=== PATIENT | male | born 1980 | race Caucasian/White ===

== ENCOUNTER 2020-02-24 11:33 | Emergency (ER) | payer MEDICARE, MEDICAID, SELFPAY ==
[2020-02-24 11:39] VITALS: BP 115/67; PULSE 64; RESP 18; TEMP 36.8; O2SAT 99; BMI 20.7
--- NOTE | 2020-02-24 12:24 | ED.DENTAL ---
HPI - Dental/Oral General Chief complaint: Dental/Oral Stated complaint: mouth infection Time Seen by Provider: 02/24/20 12:24 Source: patient Mode of arrival: ambulatory Limitations: no limitations History of Present Illness HPI Narrative: 39 y/o male with dental pain for the last 2 weeks. He has not seen a dentist in years. He has had increased pain of his upper molars and is concerned an abscess may be forming. He denies fever, chills, facial swelling, difficulty swallowing. He has been taking ibuprofen with good effect however it doesn't last and he is having a hard time sleeping. Teeth map: 1. tender, decayed tooth 2. tender decayed tooth Onset (ago): week(s) (2) Duration: constant Severity: severe Severity scale (1-10): 9 Relieving factors: NSAIDs Exacerbating factors: cold and heat Context: history of dental caries Associated symptoms: gum swelling Treatment prior to arrival: none Related Data Previous Rx's Medication Instructions Recorded dextroamphetamine-amphetamine 30 30 mg PO BID #45 tab 02/16/20 mg tablet ibuprofen 600 mg PO Q8H PRN #30 tab 02/24/20 penicillin V potassium 500 mg PO Q8H 7 Days #21 tab 02/24/20 tramadol 50 mg PO Q8H PRN #10 tab 02/24/20 Allergies Allergy/AdvReac Type Severity Reaction Status Date / Time No Known Allergies Allergy Unverified 01/29/20 17:24 Review of Systems Review of Systems: Constitutional: No Fever, No Chills ENT/Mouth: No sore throat, No Rhinorrhea, No Swallowing Difficulty Cardiovascular: No Chest Pain, No SOB, No Orthopnea, No Edema Respiratory: No Cough, No Sputum, No Wheezing, No dyspnea Gastrointestinal: No Nausea, No Vomiting Musculoskeletal: No joint pain, No Myalgias Skin: No Skin Lesions, No rash Neuro: No Weakness, No Numbness, No Dizziness, + Headache Heme/Lymph: No Bruising, No Lymphadenopathy PMFSH Past Medical History Attestation statement: The following information was validated with the patient. Medical History (Updated 02/24/20 @ 12:30 by PARTH Alvarez) No known health problems Physical Exam Vital Signs: Vital Signs: Vital Signs Temp Pulse Resp BP Pulse Ox 02/24/20 11:39 98.2 F 64 18 115/67 99 Body Mass Index 20.7 Appearance: Alert. Oriented X3. No acute distress. Eyes: Pupils equal, round and reactive to light. ENT: severe dental decay of #14 and moderate decay of #3, no palpable abscess, gingival tenderness throughout upper madible on both sides Neck: Normal inspection. Neck supple. CVS: Normal heart rate and rhythm. Respiratory: No respiratory distress. Breath sounds normal. Skin: Skin warm and dry. Normal skin color. Normal skin turgor. No rashes. Neuro: Oriented X 3. No motor deficit. No sensory deficit. Course Course Course Narrative: 39 yo male with poor dental hygiene and dental decay presenting with worsening pain x2 weeks. Encouraged to call emergency dental services in [place] which he did while he is here in the ER - made an appointment for . Will give empiric abx and tramadol for pain until he can be further assessed. Stable for d/c. MDM - Dental/Oral Differential Diagnosis Differential diagnosis: Likely gingival abscess, dental caries, toothache, dental abscess and fracture of tooth Discharge Plan Discharge Clinical Impression: Dental caries, Dental abscess Patient Disposition: Home, Self-Care Instructions: Dental Abscess (ED), Toothache (ED) Additional Instructions: Follow up with a dentist MIR[facility]. If you develop facial swelling, fever, chills, difficulty swallowing come back to the ER for further evaluation. Prescriptions: New penicillin V potassium 500 mg tablet 500 mg PO Q8H 7 Days Qty: 21 RF: 0 tramadol 50 mg tablet 50 mg PO Q8H PRN (Reason: pain) Qty: 10 RF: 0 ibuprofen 600 mg tablet 600 mg PO Q8H PRN (Reason: pain) Qty: 30 RF: 0 No Action dextroamphetamine-amphetamine [Adderall] 30 mg tablet 30 mg PO BID Qty: 45 RF: 0
== END 2020-02-24 12:53 | disposition home or self-care (01) ==
PROVIDERS: Emergency Provider Emergency Medicine; PCP Nurse Practitioner Family
DX: K02.9 Dental caries, unspecified (principal); K04.7 Periapical abscess without sinus; K08.89 Other specified disorders of teeth and supporting structures
CPT/HCPCS: 99283

== ENCOUNTER 2022-12-18 13:28 | Outpatient (AMB) | payer OTHER, SELFPAY ==
--- NOTE | 2022-12-18 14:05 | MHC.OFFWIV ---
Intake Vital Signs 12/18/22 14:22 Height 5 ft 11 in BP 100/56 L Blood Pressure Location Rt brachial Position Sitting Pulse 56 Pulse Source Pulse Oximeter Pulse Oximetry (%) 99 Oxygen Delivery Method Room Air Intake Visit Reasons: EP Stomach issues (lobby) Intake Note: Pt is here today for constipation for over a wk, and also has bowel concerns. Patient Tobacco Use Status: Former Tobacco user Quit Date: 2020 Allergies No Known Allergies Allergy (Verified 12/18/22 14:49) Medication List - Last Reconciled 12/18/22 by Faustino Ames MD dextroamphetamine-amphetamine 30 mg (Adderall) 30 mg PO BID ibuprofen 600 mg PO Q8H PRN methadone PO quetiapine 100 mg PO BEDTIME 90 days Do you need a note to return to daycare/school/sports/work: No HPI EP Stomach issues (lobby) HPI Details 42-year-old male presents to the office for a sick visit. Patient is in active substance user. He is taking methadone 90 mg a day. Continues to use heroin intermittently. For the past 1 week, patient reports that he has not had any bowel movement. Yesterday he was having liquid stool. No pain in the abdominal area. [facility] Medical History No known health problems Family History Other Mental health disorder Social History Housing: [place] Patient Tobacco Use Status: Former Tobacco user Quit Date: 2020 Current occupational status: employed Physical Exam Vital Signs: Last Vital Signs Pulse 56 12/18/22 14:22 BP 100/56 L 12/18/22 14:22 Pulse Ox 99 12/18/22 14:22 Oxygen Delivery Method Room Air 12/18/22 14:22 Const General: cooperative and healthy appearing Nutritional Appearance: well nourished Orientation/consciousness: patient oriented x3 Limitations: no limitations HEENT Head: Yes normal to inspection Eyes General: appearance normal, both eyes and all related structures Neck Neck: Yes normal visual inspection Chest Chest palpation & inspection: normal palpation of entire chest wall Resp Effort & Inspection: normal respiratory effort Neuro General: patient oriented x3 Assessment & Plan Assessment & Plan (1) Abdominal pain: Code(s): R10.9 - Unspecified abdominal pain Plan: X-ray images were personally reviewed by me. Lots of fecal matter seen. Most likely his symptoms are from constipation. Milk of magnesia and enema was suggested. Coding Level of Care Code Est Pt Level 4 (80384) Diagnoses Abdominal pain R10.9
[2022-12-18 14:22] VITALS: BP 100/56; PULSE 56; O2SAT 99
== END 2022-12-18 16:51 | disposition home or self-care (01) ==
PROVIDERS: PCP Nurse Practitioner Family; Visit Provider Internal Medicine
DX: R10.9 Unspecified abdominal pain (principal)
CPT/HCPCS: 99214

== ENCOUNTER 2022-12-18 14:56 | Outpatient (REF) | payer MEDICARE, SELFPAY ==
--- NOTE | ~2022-12-18 | XR_ITS ---
EXAMINATION: XR ABDOMEN COMPLETE CLINICAL INDICATION: Abdominal pain. COMPARISON: None available. TECHNIQUE: 2 views of the abdomen. FINDINGS: There is a nonobstructive bowel gas pattern. Mild to moderate stool seen throughout the colon distally to the rectum. No abnormal calcifications are seen. Phleboliths overlie the inferior pelvis. The osseous structures are unremarkable. XR/XR abdomen min 2V IMPRESSION: Nonobstructive bowel gas pattern. Mild to moderate colonic stool burden.
== END 2022-12-18 14:57 | disposition home or self-care (01) ==
LOC: HO.HMGCX 14:56
PROVIDERS: PCP Nurse Practitioner Family; Visit Provider Internal Medicine
DX: R10.9 Unspecified abdominal pain (principal)
CPT/HCPCS: 74019

== ENCOUNTER 2023-02-13 03:40 | Emergency (ER) | payer OTHER, SELFPAY ==
[2023-02-13 03:56] VITALS: BP 122/69; PULSE 52; RESP 16; TEMP 36.6; O2SAT 98; BMI 20.2
[2023-02-13 04:08] LABS: Hematocrit 37.5 % (42.0-52.0); Hemoglobin 12.9 g/dl (14.0-18.0); Mean Corpuscular HGB Conc 34.4 g/dl (31.0-36.0); Mean Corpuscular Hemoglobin 29.1 pg (27.0-33.0); Mean Corpuscular Volume 84.5 fL (80.0-98.0); Mean Platelet Volume 12.7 fL (9.4-12.4); Platelet Count 116 X10*3/uL (160-400); Red Blood Count 4.44 X10*6/uL (4.60-5.80); Red Cell Distribution Width 12.7 % (11.0-16.0); White Blood Count 6.1 X10*3/uL (4.8-10.8)
--- OUTSIDE RECORDS SUMMARY | 2023-02-13 04:11 | XMS_ITS | Continuity of Care Document ---
Author Name Unknown Organization [facility] Address [address] [place] [address]- Care Team Providers Care Kiln Car Repairer Name Role Phone Tai FRANCO, Asma Primary Care Physician [phone] Encounter [facility] Date(s): 05/19/19 - 05/29/19 [facility] [address] [place] [address]- [facility] Attending Physician: Aries Navarrete Admitting Physician: AdmAries oviedo Referring Physician: AdmtrAries Allergies, Adverse Reactions, Alerts Substance Reaction Severity Status NKA Active Immunizations Given and Recorded Vaccine Date Status Refusal Reason pneumococcal 23-valent vaccine 1 10/12/10 Given tetanus-diphtheria toxoids (Td) 2 09/11/10 Given 1Admin Note: vis given 02/16/09 2Admin Note: per patient Medications acetaminophen 325 mg oral tablet 650 mg, 2, tablet, By Mouth, Every 6 hours, PRN, # 50 tablet, Refills 0, Tot. Refills 0, Maintenance, as needed for pain, 12/20/18 17:41:08 EDT, Print Requisition Start Date: 12/20/18 Status: Ordered ibuprofen 400 mg oral tablet 400 mg, 1, tablet, By Mouth, Every 6 hours, PRN, # 50 tablet, Refills 0, Tot. Refills 0, Maintenance, as needed for pain, 12/20/18 17:41:00 EDT, Print Requisition Start Date: 12/20/18 Status: Ordered Naphcon-A 0.025%-0.3% ophthalmic solution 1 drops, Eyes, Both, 4 times a day, # 15 mL, 0 Refills, Maintenance, 05/19/19 18:17:00 EST, Solution Start Date: 05/19/19 Status: Ordered Tylenol Extra Strength = 1,000 mg, By Mouth, Every 6 hours, PRN as needed for pain, 0 Refills, Maintenance Start Date: 06/27/12 Status: Ordered Social History Social History Type Response Sex Male
--- OUTSIDE RECORDS SUMMARY | 2023-02-13 04:11 | XMS_ITS | Continuity of Care Document ---
Author Name Unknown Organization [facility] Address [address] [place] [id number]- Care Team Providers Care Bilingual Case Manager Name Role Phone Tai FRANCO, Asma Primary Care Physician Encounter [facility] Date(s): 09/28/20 - 09/29/[address] [address]- Discharge Disposition: A-D/C Walkout Attending Physician: Not on Staff, Attending MD Admitting Physician: Not on Staff, Admitting MD Referring Physician: Not on Staff, Referring MD Allergies, Adverse Reactions, Alerts Substance Reaction Severity [...] Refills, Maintenance Start Date: 06/27/12 Status: Ordered Vital Signs Most recent to oldest [Reference Range]: 1 Oxygen Saturation [94-100 %] 96 % (09/28/20 7:30 PM) Pulse Rate [55-90 bpm] 95 bpm *H* (09/28/20 7:30 PM) Blood Pressure [90-138/55-84 mm Hg] 140/ 67mm Hg *H* (09/28/20 7:30 PM) Respiratory Rate [16-30 br/min] 18 br/mi n (09/28/20 7:30 PM) Temperature [96.8-100.4 DegF] 100.4 DegF (09/28/20 7:30 PM) Mode of Delivery (Oxygen) Room air (09/28/20 7:30 PM) Temperature Route Oral (09/28/20 7:30 PM) Social History Social History Type Response Sex Male
--- OUTSIDE RECORDS SUMMARY | 2023-02-13 04:11 | XMS_ITS | Continuity of Care Document ---
Author Name Unknown Organization [facility] Address [address] [place] [address]- Care Team Providers Care Billboard Erector Name Role Phone Tai FRANCO, Kavithaa Primary Care Physician Encounter [place] Date(s): 05/19/19 - 05/26/19 [facility] [address] [place] [address]- [facility] Encounter Diagnosis Eye irritation(Discharge Diagnosis) - 05/19/19 Attending Physician: Rosa FRANCO, Angel Caceres Referring Physician: Nicholas Lujan MD Allergies, Adverse Reactions, Alerts Substance Reaction [...] Refills, Maintenance Start Date: 06/27/12 Status: Ordered Problem List Diagnosis Diagnosis Type Effective Dates Health Status inical Service Informant Eye irritation Discharge Diagnosis 05/19/19 Vital Signs Most recent to oldest [Reference Range]: 1 Height 180.34 cm (05/19/19 5:44 PM) Weight 65.6 kg (05/19/19 5:44 PM) Oxygen Saturation [94-100 %] 94 % (05/19/19 5:44 PM) Pulse Rate [55-90 bpm] 66 bpm (05/19/19 5:44 PM) Body Mass Index [18.5-24.99] 20.17 (05/19/19 5:44 PM) Blood Pressure [90-138/55-84 mm Hg] 146/ 70mm Hg *H* (05/19/19 5:44 PM) Respiratory Rate [16-30 br/min] 18 br/mi n (05/19/19 5:44 PM) Temperature [96.8-100.4 DegF] 98.1 DegF (05/19/19 5:44 PM) Mode of Delivery (Oxygen) Room air (05/19/19 5:44 PM) Blood pressure sites Arm, left (05/19/19 5:44 PM) Temperature Route Oral (05/19/19 5:44 PM) Dry Weight 65.6 kg (05/19/19 5:44 PM) Weight Obtained Via Standing scale (05/19/19 5:44 PM) Dry Weight Obtained Via Standing scale (05/19/19 5:44 PM) Social History Social History Type Response Sex Male
[2023-02-13 04:12] VITALS: BP 120/76; PULSE 49; RESP 18; TEMP 36.6; O2SAT 98
[2023-02-13 04:23] LABS: Alanine Aminotransferase 16 U/L (0-40); Albumin Level 4.1 g/dL (3.5-5.0); Alkaline Phosphatase 52 U/L (39-117); Anion Gap 14 (12-20); Aspartate Amino Transferase 23 U/L (5-37); Bilirubin Total 0.4 mg/dL (0.0-1.0); Blood Urea Nitrogen 23 mg/dL (9-16); Calcium 9.4 mg/dL (8.4-10.2); Carbon Dioxide 26 mmol/L (22-29); Chloride 104 mmol/L (96-108); Creatinine Clr Calc Pharmacy 98.5; Estimated Glomerular Filt Rate > 60; Glucose Random 77 mg/dL (60-115); Potassium 3.8 mmol/L (3.3-5.1); Sodium 140 mmol/L (135-145); Total Protein 7.1 g/dL (6.5-8.0)
[2023-02-13 05:11] VITALS: BP 116/65; PULSE 42; RESP 16; TEMP 36.5; O2SAT 98
--- NOTE | 2023-02-13 05:29 | ED.ABDPAIN ---
HPI - Abdominal Pain General Chief Complaint: Abdominal Pain Stated Complaint: Constipated? Time Seen by Provider: 02/13/23 05:21 Source: patient Limitations: no limitations History of Present Illness HPI narrative: 42-year-old male on chronic methadone use presents with constipation. Last bowel movement was yesterday. He is passing flatus. He is not abdominal bloating sensation. Patient describes the symptoms as moderate to severe. He was given a prescription for some sort of medication but he is not sure what it was. He has had some mild nausea but no vomiting. Denies any fevers or chills. His symptoms have been appear to have been worsening once on methadone. There are no clear relieving features. Related Data Home Medications Medication Instructions Recorded Confirmed methadone PO 03/28/21 12/18/22 Previous Rx's Medication Instructions Recorded ibuprofen 600 mg tablet 600 mg PO Q8H PRN pain #30 tabs 02/24/20 dextroamphetamine-amphetamine 30 30 mg PO BID #45 tabs 05/26/21 mg tablet (Adderall) quetiapine 100 mg tablet 100 mg PO BEDTIME 90 days #90 tabs 10/05/21 glycerin (adult) (Fleet Glycerin 1 supp [place] DAILY PRN constipation 02/13/23 (Adult) rectal suppository) #25 ea magnesium hydroxide 400 mg/5 mL 15 ml PO DAILY PRN constipation 02/13/23 oral suspension (Milk of Magnesia) #355 mL sennosides 8.6 mg-docusate sodium 2 tab-cap (2 x 8.6-50 mg) PO 02/13/23 50 mg capsule (Senna Plus) BEDTIME #30 caps Allergies Allergy/AdvReac Type Severity Reaction Status Date / Time No Known Allergies Allergy Verified 12/18/22 14:49 Review of Systems Review of Systems CONSTITUTIONAL: Denies weight loss, fever and chills. HEENT: Denies changes in vision and hearing. RESPIRATORY: Denies SOB and cough. CV: Denies palpitations no CP. GI: Denies abdominal pain, nausea, vomiting and diarrhea. : Denies dysuria and urinary frequency. MSK: Denies myalgia and joint pain. SKIN: Denies rash and pruritus. NEUROLOGICAL: Denies headache and syncope. PSYCHIATRIC: Denies recent changes in mood. Denies anxiety and depression. All other ROS are negative unless in HPI PMFSH Past Medical History Medical History No known health problems Family History Family History Other Mental health disorder Social History Social History Housing: House Patient Tobacco Use Status: Former Tobacco user Quit Date: 2020 Smoked in Last 30 Days: Yes Use of substances other than those prescribed or required for medical reasons: Yes Substance Use Type: Crack/Cocaine and Heroin Substance Use Frequency: Chronic Longstanding Last Used Substance: Hours (ago) Advance Directives: No Current occupational status: employed Physical Exam ED Vital Signs: Vital Signs - 24 hr 02/13/23 03:56 02/13/23 04:12 02/13/23 05:11 Temperature 97.8 F 97.8 F 97.7 F Pulse Rate 52 49 L 42 L Respiratory Rate 16 18 16 Blood Pressure 122/69 120/76 116/65 Pulse Oximetry 98 98 98 Oxygen Delivery Method Room Air Room Air Room Air BMI result Body Mass Index 20.2 GEN: Cachectic, no acute distress, alert, oriented HEENT: Normocephalic, atraumatic, normal external ears, nose appears normal, no oropharyngeal edema or exudates Eyes: Normal to appearance Neck: Supple, no lymphadenopathy Respiratory: Talks in complete sentences, no respiratory distress, clear to auscultation bilaterally Cardiovascular: Regular rate and rhythm, no murmurs rubs or gallops Abdomen: Soft, nontender, nondistended, no guarding, no rebound Back: No CVA tenderness Extremities: No clubbing cyanosis or edema Neurologic: No focal neurologic deficits, cranial nerves 2-12 intact, strength is 5/5 bilaterally Skin: No rash Medical Decision Making Medical Decision Making MDM Narrative: 42-year-old male on methadone presents with constipation. Has no fevers or chills. Abdomen is benign. I believe patient has opioid induced constipation. He has no significant history of abdominal surgeries. He is passing flatus. Doubt small bowel obstruction or ileus. I will recommend a strong bowel regimen for the patient. Patient potentially follow-up with Gastroenterology if needed. For more significant symptoms, patient return for re-evaluation. Differential Diagnosis Differential Diagnoses: The differential diagnosis associated with the presentation includes (Constipation, opioid induced constipation, ileus, small-bowel obstruction) Lab Data MDM Lab Attestation statement: I reviewed the patient's lab results. 02/13/23 04:03 02/13/23 04:03 Labs: Lab Results 02/13/23 Range/Units 04:03 WBC 6.1 (4.8-10.8) X10*3/uL RBC 4.44 L (4.60-5.80) X10*6/uL Hgb 12.9 L (14.0-18.0) g/dl Hct 37.5 L (42.0-52.0) % MCV 84.5 (80.0-98.0) fL MCH 29.1 (27.0-33.0) pg MCHC 34.4 (31.0-36.0) g/dl RDW 12.7 (11.0-16.0) % Plt Count 116 L (160-400) X10*3/uL MPV 12.7 H (9.4-12.4) fL Absolute Nucleated RBC 0.000 (0.0-0.012) X10*3/uL Nucleated RBC % (auto) 0.0 (0.0-0.2) /100WBC Sodium 140 (135-145) mmol/L Potassium 3.8 (3.3-5.1) mmol/L Chloride 104 (96-108) mmol/L Carbon Dioxide 26 (22-29) mmol/L Anion Gap 14 (12-20) BUN 23 H (9-16) mg/dL Creatinine 0.89 (0.5-1.4) mg/dL Estim Creat Clear Calc 98.5 Estimated GFR > 60 Random Glucose 77 (60-115) mg/dL Calcium 9.4 (8.4-10.2) mg/dL Total Bilirubin 0.4 (0.0-1.0) mg/dL AST 23 (5-37) U/L ALT 16 (0-40) U/L Alkaline Phosphatase 52 (39-117) U/L Total Protein 7.1 (6.5-8.0) g/dL Albumin 4.1 (3.5-5.0) g/dL Prescription Management I considered prescription management with: Other (Constipation medications) Chronic Conditions Patient?s care impacted by: Other (Methadone use) Discharge Plan Discharge Clinical Impression: Therapeutic opioid induced constipation Patient Disposition: Home, Self-Care Instructions: Constipation (ED) Prescriptions: New magnesium hydroxide [Milk of Magnesia] 400 mg/5 mL suspension 15 ml PO DAILY PRN (Reason: constipation) Qty: 355 0RF Senna Plus 8.6-50 mg capsule 2 tab-cap PO BEDTIME Qty: 30 0RF glycerin (adult) [Fleet Glycerin (Adult)] Suppository 1 supp [facility] DAILY PRN (Reason: constipation) Qty: 25 0RF No Action dextroamphetamine-amphetamine [Adderall] 30 mg tablet 30 mg PO BID Qty: 45 0RF Rx Instructions: 1 tablet in AM and 1/2 tablet in PM BID quetiapine 100 mg tablet 100 mg PO BEDTIME 90 Days Qty: 90 0RF ibuprofen 600 mg tablet 600 mg PO Q8H PRN (Reason: pain) Qty: 30 0RF methadone PO Referrals: Ford Bingham, CAPACITY PLANNING ANALYST-BC [Primary Care Provider] - 3 days
[2023-02-13] MEDS: Milk of Magnesia 30 ML ORAL.SUSP PO (05:52)
== END 2023-02-13 05:50 | disposition home or self-care (01) ==
PROVIDERS: Emergency Provider Emergency Medicine; PCP Nurse Practitioner Family
DX: K59.03 Drug induced constipation (principal); T40.2X5A Adverse effect of other opioids, initial encounter; Y92.9 Unspecified place or not applicable; Z79.899 Other long term (current) drug therapy; F11.20 Opioid dependence, uncomplicated
CPT/HCPCS: 36415; 80053; 85027; 99283; 99284

== ENCOUNTER 2025-05-02 00:43 | Emergency (ER) | payer OTHER, SELFPAY ==
--- NOTE | 2025-05-02 | ECG_ITS ---
Test Reason : CHEST PAIN Blood Pressure : */* mmHG Vent. Rate : 56 BPM Atrial Rate : 56 BPM P-R Int : 100 ms QRS Dur : 100 ms QT Int : 428 ms P-R-T Axes : 37 25 58 degrees QTcB Int : 413 ms Sinus bradycardia with short ND Otherwise normal ECG No previous ECGs available Referred By: Generic ED Physician Electronically Signed By: Jose C Villalobos
--- NOTE | ~2025-05-02 | XR_ITS ---
CLINICAL HISTORY: chest pain 1 view chest x-ray. Comparison: None provided Findings: No consolidation or effusion. No pneumothorax. Normal cardiomediastinal silhouette. IMPRESSION: No acute disease. This document has been electronically signed by: Ramiro Rhodes MD on 05/02/2025 03:35:15
--- NOTE | ~2025-05-02 | CT_ITS ---
CLINICAL HISTORY: CP, pericarditis, r o effusion CT chest without contrast Comparison: CR - XR CHEST 1V - 05/02/25 02:35 EST Findings: Normal heart size. Trace pericardial effusions probably physiologic. Calcific coronary artery disease: None. No bulky mediastinal lymphadenopathy. Lungs are clear. No pneumothorax or pleural effusions, plaques or calcifications. Central airways are patent. No bronchiectasis. No thyroid nodules. No chest wall masses. No axillary adenopathy. Limited view of the upper abdomen is normal. No acute fractures or pathologic bone lesions. Impression: 1. No significant pericardial effusion. 2. Clear lungs. No pneumothorax or pleural effusions. This document has been electronically signed by: Yonis Gu MD on 05/02/2025 07:12:49
[2025-05-02 00:48] VITALS: BP 121/67; PULSE 61; RESP 18; TEMP 36.5; O2SAT 99; BMI 16.6
[2025-05-02 01:14] LABS: Hematocrit 42.9 % (42.0-52.0); Hemoglobin 14.5 g/dl (14.0-18.0); Mean Corpuscular HGB Conc 33.8 g/dl (31.0-36.0); Mean Corpuscular Hemoglobin 28.5 pg (27.0-33.0); Mean Corpuscular Volume 84.3 fL (80.0-98.0); NRBC Abs Auto 0.000 X10*3/uL (0.0-0.012); NRBC Pct Auto 0.0 /100WBC (0.0-0.2); Platelet Count 130 X10*3/uL (160-400); Red Blood Count 5.09 X10*6/uL (4.60-5.80); WBC ABN SCTR FOR CBC 1
[2025-05-02 01:16] LABS: White Blood Count 11.9 X10*3/uL (4.8-10.8)
--- OUTSIDE RECORDS SUMMARY | 2025-05-02 01:23 | XMS_ITS | Clinical Summary ---
Author Organization [facility] Address [address] [place] [address] Care Team Providers Care Speedboat Operator Name Role Phone Unavailable Primary Care Provider Unavailabl e Social History Tobacco Use Types Packs/Day Years Used Date Smoking Tobacco: Never Assessed Sex and Gender Information Value Date Recorded Sex Assigned at Not on file Legal Sex Male 10:07 AM EST Gender Identity Not on file Sexual Orientation Not on file Plan of Treatment Health Maintenance Due Date Last Done Comments Colorectal Cancer Screening: Colonoscopy 1978 DTaP,Tdap,and Td Vaccines (1 - Tdap) 1997 Hepatitis B Vaccines (1 of 3 - 19+ 3-dose series) 1997 Cholesterol Screening (Lipid Panel) 04/11/2022 HIV Screening 04/11/2022 Hepatitis C Screening 04/11/2022 Social Influencers of Health Screening 04/11/2022 Depression Screening 05/14/2024 COVID-19 Vaccine ( - 2024-2 6 season) 2025 Influenza Vaccine (#1) 2025 RSV Immunization Adult Patie nts (1 - 1-dose 75+ series) 2053 HIB Vaccines Aged Out No longer eligi ble based on patient's age to complete this topic HPV Vaccines Aged Out No longer eligi ble based on patient's age to complete this topic Hepatitis A Vaccines Aged Out No long er eligible based on patient's age to complete this topic IPV Vaccines Aged Out No longer eligi ble based on patient's age to complete this topic MMR Vaccines Aged Out No longer eligi ble based on patient's age to complete this topic Meningococcal ACWY Vaccine Aged Out N o longer eligible based on patient's age to complete this topic Meningococcal B Vaccine Aged Out No l onger eligible based on patient's age to complete this topic Pneumococcal Vaccine: Pediat rics (0 to 5 Years) and At-Risk Patients (6 to 49 Years) Aged Out No longer eligible b ased on patient's age to complete this topic RSV Immunization Patients Un harpreet 20 months Aged Out No longer eligible b ased on patient's age to complete this topic Varicella Vaccines Aged Out No longer eligible based on patient's age to complete this topic
--- OUTSIDE RECORDS SUMMARY | 2025-05-02 01:23 | XMS_ITS | Clinical Summary ---
Author Organization [facility] [facility] Address [address] [place] [address] Care Team Providers Care Capital Markets Specialist Name Role Phone Unavailable Primary Care Provider Unavailabl e Immunizations Immunization Administration Dates Next Due Pfizer Covid-19 Vaccine 12+ 05/30/2022 Social History Tobacco Use Types Packs/Day Years Used Date Smoking Tobacco: Never Assessed Sex and Gender Information Value Date Recorded Sex Assigned at Male 03/13/2022 10:18 AM EDT Legal Sex Male 10:18 AM EDT Gender Identity Male 08/22/2022 10:16 AM EDT Sexual Orientation Straight 08/22/2022 10 :16 AM EDT Plan of Treatment Health Maintenance Due Date Last Done Comments CT Colonography 1978 Colonoscopy 1978 Colorectal Cancer Screening 1978 Depression Screening 1978 FIT DNA/Cologuard 1978 FIT 1978 FOBT 1978 HIV Screening 1978 Lipid Panel 1978 SDOH Screening 1978 Sigmoidoscopy 1978 Disability Screening 1978 Alcohol/Substance Use Screening 1990 Tobacco Screening 1990 Family Planning (PISQ) 1993 Hepatitis C Screening 1996 Hepatitis B Vaccines (1 of 3 - 19+ 3-dose series) 1997 Dental Prophylaxis 09/16/2014 03/18/2014 Dental X-Ray: Bitewings 10/31/2014 10/30/2013 Dental Oral Exam 11/18/2014 05/20/2014, 10/30/2013 Dental X-Ray: Full Mouth 11/12/2016 014, 10/30/2013 COVID-19 Vaccine ( - 2024-2 6 season) 2025 05/30/2022, 12/17/2020 Influenza Vaccine (#1) 2025 DTaP/Tdap/Td Vaccines (2 - T d or Tdap) 01/12/2027 01/12/2017, 09/11/2010 Zoster Vaccines (1 of 2) 2028 RSV Patients and Patients Aged 60 years or older (1 - 1-dose 75+ series) 2053 Pneumococcal Vaccine: Pediatrics (0 to 5 Years) and At-Risk Patients (6 to 49) Years Aged Out 10/12/2010 No longer eligible b ased on patient's age to complete this topic HIB Vaccines Aged Out No longer eligi [...] patient's age to complete this topic Meningococcal Vaccine Aged Out No ganga brian eligible based on patient's age to complete this topic RSV under 20 months Aged Out No longe r eligible based on patient's age to complete this topic Rotavirus Vaccines Aged Out No longer eligible based on patient's age to complete this topic Procedures Procedure Name Priority Date/Time Associated Diagnosis Comments PERIODIC ORAL EVALUATION - ESTABLISHED PATIENT Routine 05/20/2014 12:00 AM EST PROPHYLAXIS - ADULT Routine 03/18/2014 1 2:00 AM EST PANORAMIC RADIOGRAPHIC IMAGE Routine 11/11/2013 12:00 AM EDT INTRAORAL - COMPLETE SERIES OF RADIOGRAPHIC IMAGES Routine 10/30/2013 12:00 AM EDT from Last 3 Months or Most Recently Relevant to Health Maintenance Insurance MEDICARE [facility] STANDARD DENTAL-[facility] MEDICAID STAND ADULT
[2025-05-02 01:29] LABS: Alanine Aminotransferase 28 U/L (0-40); Albumin Level 4.5 g/dL (3.5-5.0); Alkaline Phosphatase 59 U/L (39-117); Anion Gap 14 (12-20); Aspartate Amino Transferase 29 U/L (5-37); Blood Urea Nitrogen 14 mg/dL (9-16); Calcium 9.5 mg/dL (8.4-10.2); Carbon Dioxide 25 mmol/L (22-29); Chloride 107 mmol/L (96-108); Creatinine Clr Calc Pharmacy 108.6; Estimated Glomerular Filt Rate > 60; Potassium 4.1 mmol/L (3.3-5.1); Sodium 142 mmol/L (135-145); Total Protein 6.9 g/dL (6.5-8.0)
[2025-05-02 01:33] LABS: Atypical Lymph Absolute Manual 0.1 x10*3/uL; Atypical Lymphs Percent Manual 1 % (0-6); Band Neutrophils Percent 2 % (3-5); Lymphocytes Absolute Manual 0.7 X10*3/uL (1.2-4.9); Lymphocytes Percent Manual 6 % (20-40); Monocytes Absolute Manual 0.2 X10*3/uL (0.1-1.2); Monocytes Percent Manual 2 % (2-11); Neutrophils Absolute Manual 10.8 X10*3/uL (2.0-8.3); Neutrophils Percent Manual 89 % (45-73)
[2025-05-02 01:34] LABS: RBC Morphology NORMAL
[2025-05-02 01:37] LABS: Troponin-I High Sensitivity < 2.7 ng/L (<3.5-35.0)
--- NOTE | 2025-05-02 04:10 | ED_ITS ---
HPI - Chest Pain General Chief Complaint: Chest Pain Stated Complaint: chest pain Time Seen by Provider: 05/02/25 03:36 Source: patient Mode of arrival: ambulatory Limitations: no limitations History of Present Illness ED Provider: Dr. Nicol Cárdenas HPI narrative: Patient comes to the emergency room complaining of severe chest pain. Patient states it started approximately 20 hours ago. Patient states that it has been going all day. Even with movement it hurts some more. However, seems that rolling into a position seems to help more. Patient denies any injuries, denies any URI symptoms. Patient admits that he has been using cocaine. Denies any previous cardiac history Related Data Home Medications ?Medication ?Instructions ?Recorded ?Confirmed methadone PO 03/28/21 12/18/22 Previous Rx's ?Medication ?Instructions ?Recorded ibuprofen 600 mg tablet 600 mg PO Q8H PRN pain #30 t abs 02/24/20 dextroamphetamine-amphetamine 30 30 mg PO BID #45 tabs 05/26/21 mg tablet (Adderall) quetiapine 100 mg tablet 100 mg PO BEDTIME 90 days #9 0 tabs 10/05/21 glycerin (adult) (Fleet Glycerin 1 supp [place] DAILY PRN c onstipation 02/13/23 (Adult) rectal suppository) #25 ea magnesium hydroxide 400 mg/5 mL 15 ml PO DAILY PRN con stipation 02/13/23 oral suspension (Milk of Magnesia) #355 mL sennosides 8.6 mg-docusate sodium 2 tab-cap (2 x 8.6-5 0 mg) PO 02/13/23 50 mg capsule (Senna Plus) BEDTIME #30 caps Allergies Allergy/AdvReac Type Severity Reaction Status Date / Time No Known Allergies Allergy Verified 05/02/25 00:54 Review of Systems 2 Review of Systems: Constitutional : No Weight loss, No Fever, No Chills, No Night Sweats, No Fatigue, No Malaise ENT/Mouth : No Hearing loss, No Ear Pain, No Nasal Congestion, No Sinus Pain, No Hoarseness, No sore throat, No Rhinorrhea, No Swallowing Difficulty Eyes: No Eye Pain, No Swelling, No Redness, No Foreign Body, No Discharge, No Vision Changes Cardiovascular : Complaining of severe substernal constant Chest Pain, No SOB, No Dyspnea on Exertion, No Orthopnea, No Edema, No Palpitations Respiratory : No Cough, No Sputum, No Wheezing, No Smoke Exposure, No Dyspnea Gastrointestinal : No Nausea, No Vomiting, No Diarrhea, No Constipation, No abdominal Pain, No Hematochezia, No Melena Genitourinary : no irregular bleeding, No Dysuria, No Urinary Frequency, No Hematuria, No Urinary Incontinence, No Urgency, No Flank Pain, No Urinary Flow Changes, No Hesitancy Musculoskeletal : No joint pain, No Myalgias, No Joint Swelling Skin : No Skin Lesions, No rash Neuro : No Weakness, No Numbness, No Paresthesias, No Loss of Consciousness, No Dizziness, No Headache Psych : No Anxiety/Panic, No Depression, No SI/HI/AH/VH, No Social Issues, Heme/Lymph: No Bruising, No Bleeding,No Lymphadenopathy Endocrine : No Polyuria, No Polydipsia, No Temperature Intolerance [facility] Past Medical History Medical History No known health problems Family History Family History Other Mental health disorder Social History Social History Housing: House Patient Tobacco Use Status: Former Tobacco user Substance Use Type: Crack/Cocaine and Heroin Current occupational status: employed Physical Exam 2 Exam: Exam: Appearance: Alert. Oriented X3. No acute distress. Eyes: Pupils equal, round and reactive to light. ENT: Pharynx normal. Neck: Normal inspection. Neck supple. No lymph nodes noted. No crepitus CVS: Normal heart rate and rhythm. Pulses normal. Normal S1 and S2 Respiratory: No respiratory distress. Breath sounds normal. No Wheezing. No rales Abdomen: Soft and nontender. No rigidity. No distention. Skin: Skin warm and dry. Normal skin color. Normal skin turgor. Extremities: No lower extremity edema. No Lacerations. No Rash Neuro: Oriented X 3. No motor deficit. No sensory deficit. Moving all extremities. No slurred speech. CN 2 through 12 grossly intact Psych: calm, cooperative, normal affect Vital Signs: Vital Signs: Last Vital Signs Temp 97.9 F 05/02/25 04:36 Pulse 58 05/02/25 04:36 Resp 20 05/02/25 04:36 BP 98/58 L 12/20/25 04:36 Pulse Ox 99 05/02/25 04:36 O2 Del Method Room Air 05/02/25 04:36 BMI result Body Mass Index 16.6 Course Course Course Narrative: All of patient's labs and EKG pending Medications Administered Discontinued Medications Generic Name Dose Route Start Last Admin Trade Name Segundo PRN Reason Stop Dose Admin Colchicine 0.6 mg 05/02/25 04:05 05/02/25 04:29 Colchicine 0.6 Mg Tablet PO 05/02/25 04:06 0.6 mg ONCE ONE Administration Ibuprofen 800 mg 05/02/25 04:06 05/02/25 04:20 Ibuprofen 800 Mg Tablet PO 05/02/25 04:07 800 mg ONCE ONE Administration Medical Decision Making Medical Decision Making [facility] Narrative: My interpretation of EKG, there is diffuse [address] segment elevation in all leads. My interpretation of labs: No significant abnormality patient's hematology and chemistry, troponin negative. It is likely that patient has a acute pericarditis. Patient was given ibuprofen [address] scan of the chest pending to rule out a pericardial effusion I was informed by the patient's nurse, that the patient randomly got up and walked out of the ED. I was informed of this after the patient had already left. We tried calling the patient to come back to the emergency department, CT scan results are not back yet. Differential Diagnosis Differential Diagnoses: The differential diagnosis associated with the presentation includes (Pericardial effusion, pericarditis) Admission/Observation Consideration of admission/observation: Escalation of care including admission/observation considered (Given patient's presentation, admission has been considered) Lab Data [facility] Lab Attestation statement: I reviewed the patient's lab results. 05/02/25 01:07 05/02/25 01:07 Labs: Lab Results 05/02/25 05/02/25 Range/Units 01:07 04:43 WBC 11.9 H (4.8-10.8) X10*3/uL RBC 5.09 (4.60-5.80) X10*6/uL Hgb 14.5 (14.0-18.0) g/dl Hct 42.9 (42.0-52.0) % MCV 84.3 (80.0-98.0) fL MCH 28.5 (27.0-33.0) pg MCHC 33.8 (31.0-36.0) g/dl RDW 13.4 (11.0-16.0) % Plt Count 130 L (160-400) X10*3/uL MPV 12.8 H (9.4-12.4) fL Immature Gran % (Auto) Cancelled Neut % (Auto) Cancelled Lymph % (Auto) Cancelled Tucker % (Auto) Cancelled Eos % (Auto) Cancelled Baso % (Auto) Cancelled Lymph # (Auto) Cancelled Tucker # (Auto) Cancelled Eos # (Auto) Cancelled Baso # (Auto) Cancelled Abs Immat Gran (auto) Cancelled Absolute Neuts (auto) Cancelled Absolute Nucleated RBC 0.000 (0.0-0.012) X10*3/uL Nucleated RBC % (auto) 0.0 (0.0-0.2) /100WBC Neutrophils % (Manual) 89 H (45-73) % Band Neutrophils % 2 L (3-5) % Lymphocytes % (Manual) 6 L (20-40) % Atypical Lymphs % (Man) 1 (0-6) % Monocytes % (Manual) 2 (2-11) % Abs Neuts (Manual) 10.8 H (2.0-8.3) X10*3/uL Lymphocytes # (Manual) 0.7 L (1.2-4.9) X10*3/uL Atyp Lymphs # (Manual) 0.1 x10*3/uL Monocytes # (Manual) 0.2 (0.1-1.2) X10*3/uL Platelet Estimate SLIGHTLY DECREASED (NORMAL) Plt Morphology Comment NORMAL RBC Morphology NORMAL Sodium 142 (135-145) mmol/L Potassium 4.1 (3.3-5.1) mmol/L Chloride 107 (96-108) mmol/L Carbon Dioxide 25 (22-29) mmol/L Anion Gap 14 (12-20) BUN 14 (9-16) mg/dL Creatinine 0.65 (0.5-1.4) mg/dL Estim Creat Clear Calc 108.6 Estimated GFR > 60 Random Glucose 109 (60-115) mg/dL Calcium 9.5 (8.4-10.2) mg/dL Total Bilirubin 1.0 (0.0-1.0) mg/dL AST 29 (5-37) U/L ALT 28 (0-40) U/L Alkaline Phosphatase 59 (39-117) U/L Troponin I High Sens < 2.7 < 2.7 (<3.5-35.0) ng/L Total Protein 6.9 (6.5-8.0) g/dL Albumin 4.5 (3.5-5.0) g/dL Independent Interpretation I performed an independent interpretation of an: Plain X-Ray and CT Scan Radiology Impression Discussion of test interpretation with radiology: I have reviewed the radiologist's reading. Radiologist Impression: Findings: No consolidation or effusion. No pneumothorax. Normal cardiomediastinal silhouette. IMPRESSION: No acute disease Critical Care Time Critical Care Time Critical Care Time: Yes Total Critical Care Time: 60 Attestation: I have personally provided critical care time. Time includes review of lab data, radiology results, discussion with consultants, and monitoring for potential decompensation. Intervention performed as documented. Discharge Plan Discharge Clinical Impression: Pericarditis Patient Disposition: Elopement Prescriptions: No Action dextroamphetamine-amphetamine [Adderall] 30 mg tablet 30 mg PO BID Qty: 45 0RF Rx Instructions: 1 tablet in AM and 1/2 tablet in PM BID quetiapine 100 mg tablet 100 mg PO BEDTIME 90 Days Qty: 90 0RF ibuprofen 600 mg tablet 600 mg PO Q8H PRN (Reason: pain) Qty: 30 0RF magnesium hydroxide [Milk of Magnesia] 400 mg/5 mL suspension 15 ml PO DAILY PRN (Reason: constipation) Qty: 355 0RF Senna Plus 8.6-50 mg capsule 2 tab-cap PO BEDTIME Qty: 30 0RF glycerin (adult) [Fleet Glycerin (Adult)] Suppository 1 supp [place] DAILY PRN (Reason: constipation) Qty: 25 0RF methadone PO Discharge Date/Time: 05/02/25 06:47 Print Language: Spanish
[2025-05-02 04:36] VITALS: BP 98/58; PULSE 58; RESP 20; TEMP 36.6; O2SAT 99
[2025-05-02 05:13] LABS: Troponin-I High Sensitivity < 2.7 ng/L (<3.5-35.0)
--- NOTE | 2025-05-02 06:46 | PC.NURSE ---
This RN was notified pt walked out @ approx 0645.
== END 2025-05-02 06:47 | disposition left against medical advice (07) ==
PROVIDERS: Emergency Provider Emergency Medicine; PCP Nurse Practitioner Family
DX: I31.9 Disease of pericardium, unspecified (principal); R07.9 Chest pain, unspecified; R00.1 Bradycardia, unspecified; R94.31 Abnormal electrocardiogram [ECG] [EKG]; Z53.29 Procedure and treatment not carried out because of patient's decision for other reasons
CPT/HCPCS: 36415; 71045; 71250; 80053; 84484; 85007; 85027; 93005; 99284; 99285

== ENCOUNTER → 2025-05-02 00:48 | Outpatient (BNV) | payer OTHER, SELFPAY | PROVIDERS: Emergency Provider Emergency Medicine; PCP Nurse Practitioner Family; Visit Provider Internal Medicine Cardiovascular Disease | DX: R00.1 Bradycardia, unspecified (principal) | CPT/HCPCS: 93010 ==

== ENCOUNTER → 2025-05-02 02:35 | Outpatient (BNV) | payer OTHER, SELFPAY | PROVIDERS: Emergency Provider Emergency Medicine; PCP Nurse Practitioner Family; Visit Provider Student in an Organized Health Care Education/Training Program | DX: I31.9 Disease of pericardium, unspecified (principal); R07.9 Chest pain, unspecified | CPT/HCPCS: 71045; 71250 ==